=== PATIENT | male | born 2000 | race Two or more races ===

== ENCOUNTER → 2023-09-14 | Outpatient (REF) | payer OTHER ==
[~2023-09-14] MED LIST: AMOX875T PO; IBUP200T46 PO; PRED20TA PO
== END ==
LOC: M LABSMT 11:49
PROVIDERS: ATTEND Urology
DX: Z30.2 Encounter for sterilization (principal)

== ENCOUNTER 2023-12-21 20:45 | Emergency (ER) | payer OTHER ==
[~2023-12-21] VITALS: Ht 180.3 cm; Wt 103.4 kg
[2023-12-21] MEDS ORDERED: AMOX500C PO (23:51)
[2023-12-22] MEDS: AMOXICILLIN 500 MG CAP PO ONE (00:28)
[2023-12-22 00:30] VITALS: BP 142/78; TEMP 99; O2SAT 100
== END 2023-12-22 00:35 | disposition home or self-care (01) ==
LOC: M ED 20:45
DX: J02.0 Streptococcal pharyngitis (principal); Z79.2 Long term (current) use of antibiotics; Z79.1 Long term (current) use of non-steroidal anti-inflammatories (NSAID); Z79.52 Long term (current) use of systemic steroids

== ENCOUNTER 2025-01-06 23:34 | Emergency (ER) | payer OTHER ==
[~2025-01-06] VITALS: Ht 180.3 cm; Wt 88.0 kg
[~2025-01-06 23:34] MED LIST changes: +AMOX500C PO
[2025-01-07 00:48] VITALS: BP 125/61
[2025-01-07] MEDS: KETOROLAC 60MG 2ML VIAL IM ONE (01:19)
[2025-01-07 01:25] VITALS: TEMP 97.9; O2SAT 100
== END 2025-01-07 01:43 | disposition home or self-care (01) ==
LOC: M ED 23:34
DX: R05.9 Cough, unspecified (principal); B34.2 Coronavirus infection, unspecified
CPT/HCPCS: 87486; 87581; 87633; 87798; 87880; 96372; 99283; J1885

== ENCOUNTER 2025-04-08 11:26 | Day surgery (SDC) | payer OTHER ==
[~2025-04-08] VITALS: Ht 185.4 cm; Wt 82.6 kg
[~2025-04-08 11:26] MED LIST changes: +HYDR-3363 PO; +METH18TA7 PO; +RAME8TAB2 PO; +dexAMETHasone 4 MG/ML 1 ML VIAL IV ONE
[2025-04-08] MEDS ORDERED: LR 1,000 ML IV SCH (11:55)
[2025-04-08] MEDS ORDERED: dexAMETHasone 4 MG/ML 1 ML VIAL As Ordered ONE (14:00)
[2025-04-08] MEDS ORDERED: fentaNYL 100 MCG/2 ML INJECTION As Ordered ONE (14:00)
[2025-04-08] MEDS ORDERED: propofoL 200 MG/20 ML VIAL As Ordered ONE (14:00)
[2025-04-08] MEDS ORDERED: LIDOCAINE 2% 100 MG/5 ML SDV (FOR ANES.) As Ordered ONE (14:00)
[2025-04-08] MEDS ORDERED: MIDAZOLAM INJ 2 MG/2 ML VIAL As Ordered ONE (14:00)
[2025-04-08] MEDS ORDERED: ONDANSETRON 4MG 2ML VIAL As Ordered ONE (14:00)
[2025-04-08] MEDS ORDERED: ACETAMINOPHEN 1000MG/100ML IV BAG As Ordered ONE (14:03)
[2025-04-08] MEDS: OXYMETAZOLINE 0.05% NASAL SPRAY As Ordered ONE (14:35)
[2025-04-08] MEDS ORDERED: SUGAMMADEX SODIUM 500 MG/5 ML VIAL As Ordered ONE (17:22)
[2025-04-08] MEDS ORDERED: dexmedeTOMIDine (4 MCG/ML) 200 MCG/50 ML BTL As Ordered ONE (17:23)
[2025-04-08] MEDS ORDERED: fentaNYL 100 MCG/2 ML INJECTION IV PRN (17:30)
[2025-04-08] MEDS ORDERED: HYDROMORPHONE HCL 0.5 MG/0.5 ML SYRINGE IV PRN (17:30)
[2025-04-08] MEDS: ONDANSETRON 4MG 2ML VIAL IV PRN (18:00)
[2025-04-08] MEDS: oxyCODONE 5MG TAB PO PRN (18:00)
[2025-04-08 18:45] VITALS: BP 139/79; TEMP 97.1; O2SAT 99
== END 2025-04-08 19:15 | disposition home or self-care (01) ==
LOC: M SDC 11:26
PROVIDERS: ATTEND Otolaryngology
DX: J35.1 Hypertrophy of tonsils (principal); F90.9 Attention-deficit hyperactivity disorder, unspecified type; Z79.899 Other long term (current) drug therapy
CPT/HCPCS: 42826; 88302; J0131; J1100; J2250; J2405; J3010

== ENCOUNTER 2025-06-24 10:01 | Inpatient (IN) | payer OTHER ==
[~2025-06-24] VITALS: Ht 182.9 cm; Wt 83.0 kg
[2025-06-24] MEDS: NICOTINE 14 MG/24 HR TRANSDERMAL TD SCH (09:00)
[~2025-06-24 10:01] MED LIST changes: -dexAMETHasone 4 MG/ML 1 ML VIAL IV ONE
[2025-06-24] MEDS ORDERED: CONC18TA14 PO (10:17)
[2025-06-24 10:52] LABS: PLATELET COUNT, AUTOMATED 191 10^3/uL (150-450)
[2025-06-24 11:20] LABS: SALICYLATE LEVEL < 3.0 MG/DL (<30)
[2025-06-24 11:21] LABS: ALT/SGPT 26 U/L (7.0-40); AST/SGOT 19 U/L (<34); CALCIUM LEVEL 9.2 MG/DL (8.5-10.1); CARBON DIOXIDE LEVEL 28 MMOL/L (20-31); CHLORIDE LEVEL 104 MMOL/L (98-107); CREATININE FOR GFR 0.95 MG/DL (0.70-1.30); GLOMERULAR FILTRATION RATE > 90.0 (>60); POTASSIUM SERUM 4.5 MMOL/L (3.5-5.1); SODIUM LEVEL 142 MMOL/L (136-145)
[2025-06-24 11:24] LABS: ETHYL ALCOHOL (ETHANOL) 0.004 % (0.000-0.010)
[2025-06-24 12:30] LABS: AMPHETAMINES LEVEL URINE NEGATIVE (NEGATIVE); BARBITURATES URINE NEGATIVE (NEGATIVE); BENZODIAZEPINES URINE NEGATIVE (NEGATIVE); CANNABINOIDS URINE NEGATIVE (NEGATIVE); COCAINE METABOLITE URINE NEGATIVE (NEGATIVE); METHADONE URINE NEGATIVE (NEGATIVE); OPIATES URINE NEGATIVE (NEGATIVE); PHENCYCLIDINE URINE NEGATIVE (NEGATIVE)
[2025-06-24] MEDS ORDERED: HOME MED LIST COMPLETE! XX SCH (12:50)
[2025-06-24] MEDS ORDERED: ACETAMINOPHEN 325 MG TAB PO PRN (14:35)
[2025-06-24] MEDS ORDERED: OLANZapine 5 MG TAB PO PRN (14:35)
[2025-06-24] MEDS ORDERED: HALOPERIDOL 5 MG TAB PO PRN (14:35)
[2025-06-24] MEDS ORDERED: MOM 30 ML SUSPENSION UDC PO PRN (14:35)
[2025-06-24] MEDS ORDERED: IBUPROFEN 400 MG TAB PO PRN (14:35)
[2025-06-24] MEDS ORDERED: MAALOX 30 ML SUSP *UDC PO PRN (14:35)
[2025-06-24 16:38] VITALS: BP 123/61; TEMP 97.7; O2SAT 100
[2025-06-24] MEDS: LORazepam 1 MG TAB PO PRN (20:12)
[2025-06-25 06:30] VITALS: BP 133/75; TEMP 98.3; O2SAT 100
[2025-06-25] MEDS: SERTRALINE HCL 25 MG TABLET PO SCH (11:20)
[2025-06-25 15:11] VITALS: BP 126/60; TEMP 97.6; O2SAT 99
[2025-06-25] MEDS: traZODone 50 MG TAB PO PRN (20:10)
[2025-06-26 06:41] VITALS: BP 124/62; TEMP 97.4; O2SAT 100
[2025-06-26] MEDS ORDERED: SERT25TA21 PO (08:48)
== END 2025-06-26 13:44 | disposition home or self-care (01) | DRG 881 ==
LOC: M ED 10:01 → M ED INP 14:35 → M PSY 16:00
PROVIDERS: ADMIT Internal Medicine; ATTEND Internal Medicine
DX: F32.A Depression, unspecified (principal); R45.851 Suicidal ideations; F41.9 Anxiety disorder, unspecified; F90.9 Attention-deficit hyperactivity disorder, unspecified type; F10.90 Alcohol use, unspecified, uncomplicated; Z56.4 Discord with boss and workmates; Z63.0 Problems in relationship with spouse or partner; Z79.899 Other long term (current) drug therapy